=== PATIENT | male | born 1955 | race Two or more races ===

== ENCOUNTER 2023-09-07 21:45 | Emergency (ER) | payer OTHER ==
[~2023-09-07] VITALS: Ht 170.2 cm; Wt 111.1 kg
[2023-09-07] MEDS ORDERED: AMLODIPINE-OLM1 EAC3 (22:02)
[2023-09-07] MEDS ORDERED: METFORMIN HCL500 MG (22:02)
[2023-09-07] MEDS ORDERED: MOUNJARO7.5 MG/0.5 SQ (22:03)
[2023-09-07] MEDS ORDERED: ACID REDUCER20 M1 (22:03)
[2023-09-07] MEDS ORDERED: ADULT LOW DOSE81 M1 (22:04)
[2023-09-07] MEDS ORDERED: KETOROLAC TROMETHAMINE 30 MG VIAL IV ONE (22:15)
[2023-09-07] MEDS ORDERED: 0.9 % SODIUM CHLORIDE 1,000 ML IV SCH (22:15)
[2023-09-07 23:10] LABS: HEMATOCRIT 42.6 % (39.0-48.0); HEMOGLOBIN 14.7 g/dL (13-16.00); MEAN CELL VOLUME 88.8 fL (80.0-100.00); MEAN CORPUSCULAR HEMOGLOBIN 30.6 pg (27.00-32.0); MEAN CORPUSCULAR HGB CONC 34.5 g/dl (32.0-36.0); PLATELET COUNT 236 K/uL (150-450); RED BLOOD COUNT 4.79 M/uL (4.00-6.00); RED CELL DISTRIBUTION WIDTH 14.5 % (11.5-14.5)
[2023-09-07 23:39] LABS: URINE APPEARANCE Clear; URINE BILIRRUBIN Negative (NEGATIVE); URINE BLOOD Negative; URINE COLOR Yellow; URINE GLUCOSE Negative (NEGATIVE); URINE LEUKOCYTE Negative; URINE NITRATE Negative; URINE PROTEIN Negative (NEGATIVE); URINE UROBILINOGEN 0.2 E.U./dl
[2023-09-07 23:43] LABS: URINE BACTERIA 35.2 uL (0.0-1933); URINE EPITHELIAL CELLS 3.3 uL (0.0-38.8); URINE RBC 2.9 uL (0.0-20.8); URINE WBC 2.9 uL (0.0-23.2)
[2023-09-08 00:35] LABS: ALBUMIN 3.7 gm/dL (3.4-5.0); BILIRUBIN TOTAL 1.63 mg/dL (0.3-1.2); CALCIUM 9.2 mg/dL (8.5-10.1); CREATININE SERUM 0.98 mg/dL (0.70-1.30); GFR 75.83; GLOBULINA 3.7 G/DL (2.4-3.5); POTASSIUM 4.03 mEq/L (3.5-5.1); TOTAL PROTEIN 7.4 gm/dL (6.4-8.2)
== END 2023-09-08 03:54 | disposition home or self-care (01) ==
LOC: ER 21:46
PROVIDERS: General Practice
DX: M54.50 Low back pain, unspecified (principal); R10.9 Unspecified abdominal pain; I10 Essential (primary) hypertension; E11.9 Type 2 diabetes mellitus without complications; Z79.84 Long term (current) use of oral hypoglycemic drugs
CPT/HCPCS: 36415; 74176; 96365; 96366; 99284; J1885; J7030